=== PATIENT | male | born 1955 | race Caucasian/White ===

== ENCOUNTER 2018-01-18 06:00 | Day surgery (SDC) | payer BC ==
[~2018-01-18 06:00] MED LIST: ADLT ASA LOW81 MG PO; CLONIDINE0.1 MG PO; COREG25 MG PO; FISH OIL1000 MG; FUROSEMIDE; GLYBURIDE2.5 M1 PO; LASIX 40 MG TAB40 MG PO; LIPITOR80 MG PO; LISI20TA5; LISINOPRIL2.5 MG; METFORMIN850 MG PO; NAPROSYN500 MG PO; NO MEDS; NORVASC5 M1 PO; ZESTRIL40 MG PO
[2018-01-18] MEDS ORDERED: PERCOCET 5/325M1 TAB PO (08:48)
[2018-01-18] MEDS ORDERED: BL IBUPROFEN200 MG PO (08:48)
[2018-01-18 08:49] VITALS: BP 139/66
== END 2018-01-18 09:20 | disposition home or self-care (01) | DRG 572 ==
LOC: ORM 06:00
PROVIDERS: ATTEND Surgery
PROC: 0JBF0ZZ Excision of Left Upper Arm Subcutaneous Tissue and Fascia, Open Approach (ICD-10-PCS; principal; 2018-01-18)
DX: C43.59 Malignant melanoma of other part of trunk (principal); E11.9 Type 2 diabetes mellitus without complications; E78.5 Hyperlipidemia, unspecified; I10 Essential (primary) hypertension
CPT/HCPCS: J2710

== ENCOUNTER 2019-01-01 08:41 | Emergency (ER) | payer OTHER ==
[~2019-01-01] VITALS: Ht 180.3 cm; Wt 110.0 kg
[~2019-01-01 08:41] MED LIST changes: +BL IBUPROFEN200 MG PO; +PERCOCET 5/325M1 TAB PO
[2019-01-01 09:12] LABS: HEMATOCRIT 48.6 % (39.0-50.0); HEMOGLOBIN 15.6 g/dl (14.0-18.0); IMMATURE GRANULOCYTES 0.6 % (0.0-5.0); MEAN CELL VOLUME 93.8 fL CALC (80.0-100.0); MEAN CORPUSCULAR HGB 30.1 pG CALC (26.0-32.0); MEAN CORPUSCULAR HGB CONC 32.1 g/L CALC (32.0-36.0); NEUT# 9.1 thou/uL (1.82-7.42); RED BLOOD COUNT 5.18 mill/uL (4.70-6.10); RED CELL DISTRI WIDTH 13.5 % (11.5-15.5)
[2019-01-01 09:18] LABS: ALBUMIN 4.5 g/dL (3.2-5.0); BILIRUBIN, TOTAL 0.8 mg/dL (0.0-1.4); CREATININE 1.8 mg/dL (0.7-1.3); POTASSIUM 4.3 mmol/l (3.5-5.1); TOTAL PROTEIN 7.9 g/dL (6.3-8.2)
--- NOTE | 2019-01-01 09:52 | NUR ---
CALLED TO ER STAT. PT ARRIVED BY EMS. RR 14 UNABLE TO SPEAK. ORDER FOR INTUBATION. PT INTUBATED ON FIRST ATTEMPT BY AT 0856 8.5 ET TUBE. SECURED 22 @ LIP. INTUBATION CONFIRMED BY CO2 DETECTOR AND XRAY. PRE INTUBATION ABG 7.07/97.6/139/97.5/27.2 INITIAL VENT SETTINGS AC/650/20/3/100%
[2019-01-01 10:37] LABS: URINE BILIRUBIN - DIPSTICK NEGATIVE (NEGATIVE); URINE BLOOD DIPSTICK SMALL (NEGATIVE); URINE COLOR YELLOW; URINE GLUCOSE - DIPSTICK 250 mg/dL (NEGATIVE); URINE KETONE NEGATIVE (NEGATIVE); URINE LEUK ESTERASE NEGATIVE (NEGATIVE); URINE NITRITE - DIPSTICK NEGATIVE (Negative); URINE PH 5.5 (4.5-8.0); URINE PROTEIN - DIPSTICK >=300 mg/dL (NEG-TRACE); URINE SPECIFIC GRAVITY >=1.030; URINE UROBILINOGEN - DIPSTICK 0.2 E.U./dL (0.2)
[2019-01-01 10:45] LABS: BARBITURATES NEGATIVE (NEGATIVE); COCAINE NEGATIVE (NEGATIVE); METHADONE NEGATIVE (NEGATIVE); OXCYCODONE NEGATIVE (NEGATIVE); TETRAHYDROCANNABIONOL NEGATIVE (NEGATIVE); TRICYLIC ANTIDEPRESSANTS NEGATIVE (NEGATIVE)
[2019-01-01 10:59] LABS: URINE AMORPH SEDIMENT FEW hpf (NONE-FER); URINE CASTS FEW lpf (NONE-RARE); URINE FINE GRAN CAST FEW lpf
[2019-01-01 12:00] VITALS: BP 149/72
== END 2019-01-01 12:03 | disposition short-term general hospital (02) | DRG 189 ==
LOC: ED 08:41 → ED-I 10:24 → ED 12:03
PROVIDERS: Emergency Medicine
PROC: 0BH17EZ Insertion of Endotracheal Airway into Trachea, Via Natural or Artificial Opening (ICD-10-PCS; principal; 2019-01-01)
PROC: 0T9B70Z Drainage of Bladder with Drainage Device, Via Natural or Artificial Opening (ICD-10-PCS; 2019-01-01)
DX: J96.92 Respiratory failure, unspecified with hypercapnia (principal); J18.9 Pneumonia, unspecified organism; J81.1 Chronic pulmonary edema
CPT/HCPCS: J1250

== ENCOUNTER 2019-04-04 07:53 | Observation (INO) | payer BC ==
[~2019-04-04] VITALS: Ht 180.3 cm; Wt 120.4 kg
[2019-04-04 09:02] LABS: HEMOGLOBIN 13.9 g/dl (14.0-18.0); IMMATURE GRANULOCYTES 0.6 % (0.0-5.0); MEAN CELL VOLUME 91.1 fL CALC (80.0-100.0); MEAN CORPUSCULAR HGB 30.3 pG CALC (26.0-32.0); MEAN CORPUSCULAR HGB CONC 33.3 g/L CALC (32.0-36.0); NEUT# 6.98 thou/uL (1.82-7.42); RED BLOOD COUNT 4.59 mill/uL (4.70-6.10); RED CELL DISTRI WIDTH 13.2 % (11.5-15.5)
[2019-04-04 09:08] LABS: HEMATOCRIT 41.8 % (39.0-50.0)
[2019-04-04 09:11] LABS: ANION GAP 13 (6-22 (CALC)); BUN 34 mg/dL (8-23); BUN/CREATININE RATIO 21 (12-20 (CALC)); CARBON DIOXIDE 29 mmol/l (22-30); CHLORIDE 105 mmol/l (95-108); CREATININE 1.6 mg/dL (0.7-1.3); GFR 44 ML/MIN (>=60 (CALC)); GFR FOR AFR.AMER. 53 ML/MIN (>=60 (CALC)); POTASSIUM 4.4 mmol/l (3.5-5.1); SODIUM 142 mmol/l (137-146)
[2019-04-04] MEDS ORDERED: ASPIRIN81 MG PO (09:39)
[2019-04-04] MEDS ORDERED: SPIRONOLACTONE25 MG PO (09:39)
[2019-04-04] MEDS ORDERED: CARVEDILOL25 MG PO (09:40)
[2019-04-04] MEDS ORDERED: COZAAR100 MG PO (09:51)
[2019-04-04] MEDS ORDERED: OPDIVO40 MG/4 ML (09:53)
[2019-04-04 12:05] VITALS: BP 150/66
[2019-04-04 16:07] VITALS: BP 156/69
[2019-04-04 19:00] VITALS: BP 140/82
[2019-04-05] VITALS: BP 120/58
[2019-04-05 04:05] VITALS: BP 97/50
[2019-04-05 06:26] LABS: CREATININE 1.7 mg/dL (0.7-1.3)
[2019-04-05 07:50] VITALS: BP 137/65
[2019-04-05 09:33] VITALS: BP 137/65
== END 2019-04-05 11:20 | disposition home or self-care (01) | DRG 313 ==
LOC: ED 07:53 → ED-I 08:11 → ED 09:26 → MS2 09:27
PROVIDERS: Family Medicine; ADMIT Internal Medicine; ATTEND Internal Medicine
DX: R07.9 Chest pain, unspecified (principal); I13.0 Hypertensive heart and chronic kidney disease with heart failure and stage 1 through stage 4 chronic kidney disease, or unspecified chronic kidney disease; I50.22 Chronic systolic (congestive) heart failure; I42.8 Other cardiomyopathies; C79.9 Secondary malignant neoplasm of unspecified site; E11.22 Type 2 diabetes mellitus with diabetic chronic kidney disease; N18.3 Chronic kidney disease, stage 3 (moderate); I25.10 Atherosclerotic heart disease of native coronary artery without angina pectoris; C43.59 Malignant melanoma of other part of trunk; Z79.84 Long term (current) use of oral hypoglycemic drugs; Z79.899 Other long term (current) drug therapy
CPT/HCPCS: G0378

== ENCOUNTER 2020-02-17 09:05 | Emergency (ER) | payer BC ==
[~2020-02-17] VITALS: Ht 180.3 cm; Wt 127.2 kg
[~2020-02-17 09:05] MED LIST changes: +ASPIRIN81 MG PO; +CARVEDILOL25 MG PO; +COZAAR100 MG PO; +OPDIVO40 MG/4 ML; +SPIRONOLACTONE25 MG PO
[2020-02-17] MEDS ORDERED: ACETAMIN500 M2 PO (09:30)
[2020-02-17 10:11] LABS: HEMATOCRIT 40.9 % (39.0-50.0); HEMOGLOBIN 13.4 g/dl (14.0-18.0); IMMATURE GRANULOCYTES 0.3 % (0.0-5.0); MEAN CELL VOLUME 89.3 fL CALC (80.0-100.0); MEAN CORPUSCULAR HGB 29.3 pG CALC (26.0-32.0); MEAN CORPUSCULAR HGB CONC 32.8 g/dL CAL (32.0-36.0); NEUT# 5.7 thou/uL (1.82-7.42); RED BLOOD COUNT 4.58 mill/uL (4.70-6.10); RED CELL DISTRI WIDTH 13.4 % (11.5-15.5)
[2020-02-17 10:36] LABS: ALBUMIN 3.9 g/dL (3.2-5.0); BILIRUBIN, TOTAL 0.5 mg/dL (0.0-1.4); CREATININE 2.1 mg/dL (0.7-1.3); POTASSIUM 3.9 mmol/l (3.5-5.1); TOTAL PROTEIN 6.7 g/dL (6.3-8.2)
[2020-02-17 10:44] LABS: URINE BILIRUBIN - DIPSTICK NEGATIVE (NEGATIVE); URINE BLOOD DIPSTICK TRACE-INTACT (NEGATIVE); URINE COLOR YELLOW; URINE GLUCOSE - DIPSTICK 250 mg/dL (NEGATIVE); URINE KETONE NEGATIVE (NEGATIVE); URINE LEUK ESTERASE NEGATIVE (NEGATIVE); URINE NITRITE - DIPSTICK NEGATIVE (Negative); URINE PROTEIN - DIPSTICK 100 mg/dL (NEG-TRACE); URINE SPECIFIC GRAVITY 1.025; URINE UROBILINOGEN - DIPSTICK 0.2 E.U./dL (0.2)
[2020-02-17 10:55] LABS: URINE MUCUS FEW hpf (NONE-FEW); URINE SQUAMOUS EPITHELIAL CELL FEW EPI/hpf (0-FEW)
[2020-02-17] MEDS ORDERED: HYDROCO/APAP1 TA9 PO (12:31)
[2020-02-17 12:41] VITALS: BP 164/66
== END 2020-02-17 12:52 | disposition home or self-care (01) | DRG 605 ==
LOC: ED 09:05
DX: S20.229A Contusion of unspecified back wall of thorax, initial encounter (principal); E11.9 Type 2 diabetes mellitus without complications; I11.0 Hypertensive heart disease with heart failure; I50.9 Heart failure, unspecified; C80.1 Malignant (primary) neoplasm, unspecified; R94.4 Abnormal results of kidney function studies; W17.89XA Other fall from one level to another, initial encounter; Y92.007 Garden or yard of unspecified non-institutional (private) residence as the place of occurrence of the external cause; Z79.899 Other long term (current) drug therapy; Z79.84 Long term (current) use of oral hypoglycemic drugs

== ENCOUNTER 2022-04-09 06:10 | Day surgery (SDC) | payer BC ==
[~2022-04-09] VITALS: Ht 180.3 cm; Wt 122.5 kg
[~2022-04-09 06:10] MED LIST changes: +ACETAMIN500 M2 PO; +ENTRESTO 49-511 TAB PO; +FARXIGA10 MG PO; +HYDROCO/APAP1 TA9 PO
[2022-04-09 11:17] VITALS: BP 113/59
== END 2022-04-09 08:20 | disposition home or self-care (01) | DRG 724 ==
LOC: ENDO 06:10
PROVIDERS: ATTEND Urology
PROC: 0VB03ZX Excision of Prostate, Percutaneous Approach, Diagnostic (ICD-10-PCS; principal; 2022-04-09)
PROC: BV49ZZZ Ultrasonography of Prostate and Seminal Vesicles (ICD-10-PCS; 2022-04-09)
DX: C61 Malignant neoplasm of prostate (principal); N40.3 Nodular prostate with lower urinary tract symptoms; R35.0 Frequency of micturition; E11.22 Type 2 diabetes mellitus with diabetic chronic kidney disease; N18.30 Chronic kidney disease, stage 3 unspecified; E11.42 Type 2 diabetes mellitus with diabetic polyneuropathy; I50.9 Heart failure, unspecified; Z79.4 Long term (current) use of insulin
CPT/HCPCS: J1956